=== PATIENT | female | born 1960 | race Caucasian/White ===

== ENCOUNTER → 2024-03-15 | Outpatient (CLI) | payer SELFPAY, OTHER ==
--- NOTE | 2024-03-15 14:36 | CT_ITS ---
STUDY: CT RIGHT SHOULDER REASON FOR EXAM: Female, 64 years old. FX R SHOULDER/HUMERUS due to a fall. RADIATION DOSAGE (If Supplied By Facility): CTDIvol = ( 24.10 ) mGy, DLP = ( 608.01 ) mGycm TECHNIQUE: The patient was scanned in a multi detector CT scanner. High resolution transaxial imaging was performed without the administration of intravenous contrast material. Sagittal and coronal images were reconstructed. Individualized dose optimization techniques were used for this CT. COMPARISON: None. FINDINGS: Normal glenohumeral articulation. Normal glenoid rim, neck and visualized scapula. There is evidence of an impacted comminuted fracture of the surgical neck of the proximal humerus with extension of the fracture into the greater and lesser tuberosities of the proximal humerus. Normal coracoid process. Normal visualized lateral clavicle. Normal acromioclavicular articulation. There is a Type II morphology (curved), with a neutral orientation. Soft tissue swelling. CT/Extremity Upper without Contra IMPRESSION: Nondisplaced, fracture of the surgical neck of the proximal humerus with extension of the fracture into the lesser and greater tuberosities. There is no evidence of subluxation. Electronically Signed: Roman Arroyo MD at 15:13 EDT ,
== END | disposition home or self-care (01) ==
PROVIDERS: Referring Provider Orthopaedic Surgery; Visit Provider Orthopaedic Surgery
DX: S42.241A 4-part fracture of surgical neck of right humerus, initial encounter for closed fracture (principal); X58.XXXA Exposure to other specified factors, initial encounter
CPT/HCPCS: 73200

== ENCOUNTER 2024-03-23 10:23 | Day surgery (SDC) | payer SELFPAY, OTHER ==
[2024-03-23] VITALS (14 sets, daily range): BP systolic 110–153; BP diastolic 74–85; PULSE 70–80; RESP 8–18; TEMP 36.2–36.6; O2SAT 77–97; BMI 34.3
--- NOTE | 2024-03-23 | IMM_PTH ---
PATIENT: CK AUSTIN LOC: [facility] [place] U#:[id number] AGE/SX: 64/F ROOM: RE03/23/[address]: Dr. Yassine Pozo DO : 1960 BED: DIS: 03/23/2024 SPEC #: [id number] RECD: 03/29/24 11:12 STATUS: CITLALLI REQ #: [id number] ERIBERTO: 03/23/24 00:[address]: Yassine Pozo DEPT: IMMUNOHISTOCHEMISTRY RECD BY: Rolly Wood ENTERED: 03/29/24 11:12 SP TYPE: IMMUNO OTHR DR: No Primary Care Phys Tissues: Shoulder, NOS Procedures: BCL-2 (add) CD20 (add) CD3 (add) CD45 (add) CD5 (add) CD79A (add) P53 (add) Pankeratin (initial) PHYSICIAN & INSTITUTION [place] [id number] SPECIMEN INFORMATION: Tissue Source: Right total shoulder arthroplasty Clinical Info: 4 part right proximal humerus fracture Specimen Number: [id number] CPT code: 20940,56407h1 METHODOLOGY: Deparaffinized sections of prefer/formalin-fixed tissue or PAP/DQ stained slides are incubated with monoclonal/polyclonal antibodies/oligonucleotide probes. Localization is made via biotin free immunoperoxidase method. Appropriate controls are performed and reacted as expected. Results on target cell population are indicated in the following table: RESULTS: ANTIBODY / CLONE RESULT Block #3 AE1-3 (AE1/AE3/PCK26) negative CD3 (PS1) positive CD5 (SP10) positive CD20 (L26) positive, focal CD45 (RP2/18) positive, focal CD79a (11E3) positive BCL-2 (bcl-2/100/D5) negative, null pattern P53 (DO-7) These tests were developed and their performance characteristics determined by [facility]. They may not have been cleared or approved by the U.S. Food and Drug Administration. The FDA has determined that such clearance or approval is not necessary. The above immunohistochemical/dualISH markers are ordered and reviewed by the Pathologist. INTERPRETATION: Bone and soft tissue, right shoulder: Polytypic lymphoid aggregates. AM/mr 03/30/2024
[2024-03-23 11:21] LABS: Magnesium 2.4 mg/dL (1.6-2.6)
[2024-03-23] MEDS: Vancomycin HCl 1,250 MG in 0.9% Normal Saline (250mL Bag) 250 ML 167 MG IV (11:23)
[2024-03-23] MEDS: Lactated Ringers 1,000 ML 15 ML IV (11:23)
[2024-03-23] MEDS: Magnesium 1 GM over 15 mins IV (11:46)
--- NOTE | 2024-03-23 12:21 | PRE.ANES_ITS ---
ASA Classification* ASA Classification ASA Classification: 2 Assessment & Plan Anesthesia* Anesthesia Assessment Anesthesia Assessment: Discussed sedation and/or anesthesia options, risks, benefits, and alternatives with patient/parents/legal guardian/POA. Questions invited. The patient/parents/legal guardian/POA seems to understand and agrees to proceed with anesthesia plan. Reviewed the physical assessment, medical history, allergy history and patient home medications list prior to surgery/procedure/anesthetic and documented any changes. Performed airway and anesthesia risk assessments. Anesthesia Type Anesthesia Type: General (see written pre anesthesia record for full assessment) Anesthesia Focused Assessment* Temperature: 97.9 F Pulse Rate: 75 Blood Pressure: 153/77 Respiratory Rate: 18 Pulse Ox: 97 Airway Assessment Mouth opens: >3 cm Mallampati Score: II Focused Labs Anesthesia Preop lab: CBC CHEMISTRY Magnesium 2.4 mg/dL (1.6-2.6) 03/23/24 11:05 COAG Pre-Assessment Diagnosis/Proposed Procedure Planned Operative Procedure(s): (R) ERAS, REVERSE RIGHT TOTAL SHOULDER ARTHROPLASTY Anesthesia History Anesthesia History - cardiopulmonary physical therapist: Anesthesia History - cardiopulmonary physical therapist Hx Hospitalization No 03/21/24 15:09 Any Problems With Anesthesia No 03/21/24 15:09 Cholinesterase deficiency No 03/21/24 15:09 You/Your Family Experience No 03/21/24 15:09 fever (hyperthermia) with Relationship Recent Exposure to Contagious No 03/23/24 11:15 Disease Does patient have nerve No 03/21/24 15:09 stimulator Patient instructed to have device shut off --Does patient have Pacemaker No 03/23/24 11:15 or ICD? When Was Last Pacemaker Check QUESTION #4 FULL TEXT: You/Your Family Experience fever (hyperthermia) with Anesthesia Last Oral Intake Last Oral intake: Last Oral Intake NPO since 06:00 03/23/24 11:15 Meds taken in AM with sips of Yes 03/23/24 11:15 water? Meds patient instructed to take am of surgery PONV PONV - cardiopulmonary physical therapist: PONV - cardiopulmonary physical therapist Female Yes 03/21/24 15:09 HX of Motion Sickness Yes 03/21/24 15:09 HX of N/V After Surgery No 03/21/24 15:09 Non-Smoker Yes 03/21/24 15:09 Duration of Surgery greater Yes 03/21/24 15:09 than 60 minutes Number of Risk Factors 4 03/21/24 15:09 PONV Score Severe Risk 03/21/24 15:09 Height & Weight Height & Weight: Anesthesia: Height & Weight Height 5 ft 3 in 03/23/24 11:15 Weight: 88 kg 03/23/24 11:15 Body Mass Index (BMI) 34.3 03/23/24 11:15 Respiratory Assessment Respiratory Assessment - cardiopulmonary physical therapist: Respiratory Tract Infection Hx - cardiopulmonary physical therapist Hx Respiratory Tract Infection No 03/21/24 15:09 STOP Sleep Apnea STOP Sleep Apnea - cardiopulmonary physical therapist: STOP Sleep Apnea - cardiopulmonary physical therapist Hx Hypertension No 03/21/24 15:09 Hx Sleep Apnea No 03/21/24 15:09 CPAP BIPAP Do you snore loudly (louder No 03/21/24 15:09 than talking or can be heard Do you often feel tired/ No 03/21/24 15:09 fatigued/ sleepy during daytime? Has anyone observed you stop No 03/21/24 15:09 breathing during sleep? STOP Results Negative 03/21/24 15:09 QUESTION #5 FULL TEXT : Do you snore loudly (louder than talking or can be heard through closed doors)? Tobacco Use History Tobacco Use History - cardiopulmonary physical therapist: Tobacco Use History - cardiopulmonary physical therapist Tobacco Use Smoking Status Never smoker 03/21/24 15:09 Hx Tobacco Use No 03/21/24 15:09 Years Smoking Packs Smoked per Day Smoking Cessation Date was within the last 15 years Hx Smoking Cessation Date Hx Smoking Cessation Counseling Hematologic Medial History Hematologic Hx - cardiopulmonary physical therapist: Hematologic Medical Hx - signaling design engineer Hx of Blood Transfusion No 03/21/24 15:09 Hx of Transfusion in last 3 No 03/21/24 15:09 Months Date of Last Transfusion (if within last 3 months) Ever experience any problems No 03/21/24 15:09 with transfusion(s)? Specify any problems Hx of Preganancy in last 3 No 03/21/24 15:09 Months Nurse Filling Out Transfusion VCHRISTIN 03/21/24 15:09 & Questions: Date: 03/21/24 03/21/24 15:09 Time: 15:10 03/21/24 15:09 Patient unable to answer at this time (ie. confused, unrespo /Reproduction History /Reproductive History - cardiopulmonary physical therapist: /Reproductive Hx- cardiopulmonary physical therapist Hx Now No 03/21/24 15:09 Gestational Age (in weeks): EDC: Hx Hx Para Hx Section SAB No 03/21/24 15:09 Active Medications Active Medications: Current Medications Generic Name Dose Route Start Last Admin Trade Name Freq PRN Reason Stop Dose Admin Acetaminophen 1,000 mg 03/23/24 12:30 Acetaminophen 500 Mg Tablet PO 03/23/24 12:31 X1 ONE Gabapentin 600 mg 03/23/24 12:30 Gabapentin 600 Mg Tablet PO 03/23/24 12:31 X1 ONE Cefazolin Sodium 2 gm/ Sodium 110 mls @ 150 mls/hr 03/23/24 12:30 Chloride IV 03/23/24 13:13 PREOP ONE Lactated Ringer's 1,000 mls @ 15 mls/hr 03/23/24 10:45 03/23/24 11:23 IV 15 mls/hr .Q48H STEPHEN Administration Vancomycin HCl 1,250 mg/ 275 mls @ 167 mls/hr 03/23/24 11:00 03/23/24 11:23 Sodium Chloride IV 03/23/24 12:38 167 mls/hr X1 ONE Administration Insulin Human Lispro 1 - 6 unit 03/23/24 12:30 Insulin Lispro 100 Unit/Ml Insuln.Pen SC Q4H PRN PRN BG>/= 180, SEE PROTOCOL Protocol PFSH Medical History Wears glasses Post-menopausal Blackout Anxiety Abrasion Arthritis Dietary restriction Non-smoker Home Medications ?Medication ?Instructions ?Recorded ?Last Taken ?Type ALPHA BASE 1 tab PO BID 03/21/24 03/21/24 History acetaminophen 325 mg tablet (Pain 650 mg PO Q4H PRN pain, severe 03/21/24 03/23/24 History Reliever (acetaminophen)) 1,000 mg Allergy/AdvReac Type Severity Reaction Status Date / Time sulfamethoxazole (From Allergy Intermediate Other Verified 03/23/24 11:13 Bactrim) trimethoprim (From Bactrim) Allergy Intermediate Other Verified 03/23/24 11:13 amoxicillin (From Augmentin) Allergy Mild shakey Verified 03/23/24 11:13 clavulanic acid (From Allergy Mild Hives Verified 03/23/24 11:13 Augmentin) Surgical History Hx of ovarian cystectomy Hx of bilateral cataract extraction Hx of detached retina repair Social History Smoking Status: Never smoker Review of Systems (Anesthesia) ROS Narrative System reviewed and no additional complaints, except as documented.
[2024-03-23] MEDS: Gabapentin 600 MG Tablet PO (12:30)
--- NOTE | 2024-03-23 12:30 | SHO_PTH ---
PATIENT: CK A[place]IN LOC: [facility] [place] U#:[id number] AGE/SX: 64/F ROOM: RE03/23/[address]: Dr. Yassine Pozo DO : 1960 BED: DIS: 03/23/2024 SPEC #: [id number] RECD: 03/23/24 16:23 STATUS: CITLALLI RETejas #: [id number] ERIBERTO: 03/23/24 12:[address]: Yassine Pozo DEPT: SURGICAL PATHOLOGY RECD BY: Luanne Cao ENTERED: 03/24/24 07:15 SP TYPE: HUMERUS OTHR DR: No Primary Care Phys Tissues: Humerus, NOS Procedures: Decalcification bone/plaque Surgery Specimen Level IV HEADER OPERATION: Reverse right total shoulder arthroplasty PRE-OP DIAGNOSIS: 4 part right proximal humerus fracture TISSUE SUBMITTED: Bone and soft tissue right shoulder MICROSCOPIC DIAGNOSIS Bone and tissue of right shoulder, total shoulder resection: Consistent with organizing with fracture callus. Benign (polytypic) lymphoid aggregates. AM:mr 03/29/2024 COMMENT Immunohistochemistry ([id number]) supports the above diagnosis. Case has been reviewed in consultation with Dr. Espinosa who concurs with the above diagnosis. IDC:CHLOE MICROSCOPIC DESCRIPTION Slides are reviewed. GROSS DESCRIPTION Received is one container labeled with the patient's name and designated bone and soft tissue. The specimen consists of a humeral head in three pieces measuring in aggerate 5.0 x 5.0 x 3.0 cm. The resection margin is irregular and hemorrhagic. The articular surface is smooth. Also received are three variable sized of bone measuring in aggregate 3.0 x 2.0 x 1.0cm. No soft tissue is identified. Coroner'S Juror sections are submitted in three cassettes as follows: 1- detached pieces of bone after decalcification, 2&3- humeral head after decalcification. CHLOE/ 03/24/2024 TC:5 CPT: 32991, 23385
[2024-03-23 12:40] LABS: Bedside Glucose 94 mg/dL (74-106)
[2024-03-23] MEDS: Cefazolin 2 GM in 0.9% Normal Saline (100mL Bag) 100 ML IV (13:13)
[2024-03-23] MEDS: [UNRECOGNIZED DRUG - OTHER] IV (14:27)
[2024-03-23] MEDS: TXA IV (14:27)
--- NOTE | 2024-03-23 14:43 | RAD_ITS ---
STUDY: X-RAY - RIGHT SHOULDER REASON FOR EXAM: Female, 64 years old. Intraoperative digital documentation view of the reverse total shoulder arthroplasty. TECHNIQUE: A single frontal digital documentation view(s) of the shoulder. COMPARISON: Shoulder CT dated March 15, 2024 FINDINGS: Single frontal digital documentation view shows reverse total shoulder arthroplasty which appears in anatomic alignment. RAD/Shoulder min 2 Views IMPRESSION: Intraoperative digital documentation view as described. Electronically Signed: Leobardo Blackburn MD at 10:13 EDT ,
--- NOTE | 2024-03-23 15:47 | PCM.POST.ANE ---
Anesthesia: Postop Eval I Current Vital Signs Temperature: 97.5 F Pulse Rate: 76 Blood Pressure: 110/74 Respiratory Rate: 16 Pulse Ox: 93 Oxygen Delivery Method: Nasal Cannula Oxygen Flow Rate (L/min): 4 Assessment Airway patent: Yes Spontaneous unlabored respirations: Yes Mental status: Awake and Calm nausea: No Vomiting: No Anesthesia Complication: No Fluid Hydration Crystalloid volume administer (ml): 1,100 Total IV fluid infused: 1,100 Progress Note Anesthesia document: Postop Eval 1 completed: Yes
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
--- NOTE | 2024-03-23 17:05 | POSTOPAN2_ITS ---
Anesthesia Postop Eval I Sum Postop Eval Completion status Anesthesia document: Postop Eval 1 completed: Yes Anesthesia Postop Eval I Summary Anesthesia Postop Eval I Summary: Anesthesia Postop Eval I: Assessment Summary Airway patent Yes 03/23/24 15:48 [email or web address] Spontaneous unlabored Yes 03/23/24 15:48 CARPENTERS [email or web address].MDOT respirations Mental status Awake,Calm 03/23/24 15:48 CARPENTERS [email or web address].MDOT nausea No 03/23/24 15:48 CARPENTERS [email or web address].MDOT Vomiting No 03/23/24 15:48 CARPENTERS [email or web address].MDOT Anesthesia Postop Eval I: Fluid Summary Crystalloid volume administer 1,100 03/23/24 15:48 CARPENTERS [email or web address].MDOT (ml) Colloids volume administered ( ml) Blood Product volume administered (ml) Total IV fluid infused 1,100 03/23/24 15:48 CARPENTERS [email or web address].[email or web address] Anesthesia Postop Eval I: Summary Notes Anesthesia Complication No 03/23/24 15:48 CARPENTERS [email or web address].MDOT Anesthesia Complication Comment: Post-operative progress note Anesthesia: Postop Eval II Evaluation Mental status: Awake Pain Level: 0 nausea: No Vomiting: No
--- NOTE | 2024-03-23 17:05 | RAD_ITS ---
STUDY: X-RAY - RIGHT SHOULDER REASON FOR EXAM: Female, 64 years old. post op -- AP and Lateral X-Ray of operative shoulder in PACU TECHNIQUE: 2 view(s) of the shoulder. COMPARISON: CT of the right shoulder dated March 15, [address]: [address] of the right shoulder show acute comminuted fracture of the right humeral head and neck with displaced fragments 2. Status surgical resection of the humeral head. Status post placement of a reverse shoulder arthroplasty system demonstrating good bony contact and alignment and is well placed. Displaced greater tuberosity fracture fragment at the periphery is unchanged in position from the prior study but is opposed to the bone, likely for surgical intervention of healing in providing greater security to the lateral aspect of the prosthesis. Mild postoperative swelling. No demonstrated complications. 3. Unremarkable visualized aspects of the right chest. Normal visualized pulmonary apex. RAD/Shoulder min 2 Views IMPRESSION: Status post right shoulder arthroplasty Electronically Signed: Jaspal Nelson MD at 17:50 EDT ,
--- NOTE | 2024-03-23 17:05 | PCM.POSTANE2 ---
Anesthesia Postop Eval I Sum Postop Eval Completion status Anesthesia document: Postop Eval 1 completed: Yes Anesthesia Postop Eval I Summary Anesthesia Postop Eval I Summary: Anesthesia Postop Eval I: Assessment Summary Airway patent Yes 03/23/24 15:48 THIRD [email or web address] Spontaneous unlabored Yes 03/23/24 15:48 THIRD [email or web address] respirations Mental status Awake,Calm 03/23/24 15:48 THIRD [email or web address] nausea No 03/23/24 15:48 THIRD [email or web address] Vomiting No 03/23/24 15:48 THIRD [email or web address] Anesthesia Postop Eval I: Fluid Summary Crystalloid volume administer 1,100 03/23/24 15:48 THIRD [email or web address].MDOT (ml) Colloids volume administered ( ml) Blood Product volume administered (ml) Total IV fluid infused 1,100 03/23/24 15:48 THIRD [email or web address] Anesthesia Postop Eval I: Summary Notes Anesthesia Complication No 03/23/24 15:48 THIRD [email or web address] Anesthesia Complication Comment: Post-operative progress note Anesthesia: Postop Eval II Evaluation Mental status: Awake Pain Level: 0 nausea: No Vomiting: No
[2024-03-23] MEDS: Acetaminophen 500 MG Tablet 1000 MG PO (17:43)
--- NOTE | 2024-03-23 20:48 | SUR.PHASEII ---
THIS NURSE CALLED BACK TO OR TO ASK DR SELBY ABOUT THE PATIENT'S ERAS TYLENOL DOSE SINCE PATIENT HAD A GRAM OF TYLENOL AT 6:00AM. PER [facility] RN RELAYING DR. SELBY'S MESSAGE HOLD ERAS TYLENOL AND SHE CAN HAVE TYLENOL POST OPERATIVE
== END 2024-03-23 18:32 | disposition home or self-care (01) ==
LOC: SDC 10:24 → AC 10:25
PROVIDERS: Anesthesiology; Referring Provider Student in an Organized Health Care Education/Training Program; Visit Provider Student in an Organized Health Care Education/Training Program
PROC: (CPT 23472; principal; 2024-03-23 12:00)
DX: S42.201A Unspecified fracture of upper end of right humerus, initial encounter for closed fracture (principal); V19.9XXA Pedal cyclist (driver) (passenger) injured in unspecified traffic accident, initial encounter
CPT/HCPCS: 23472; 01638; 64450; 73030; 76000; 82962; 83735; 88305; 88311; 88341; 88342; C1713; C1776; J7050; J7120; J2405; J3475